=== PATIENT | male | born 1995 | race Asian ===

== ENCOUNTER 2017-01-02 14:46 | Outpatient (CLI) | payer BC ==
--- NOTE | 2017-01-02 15:26 | RAD ---
TWO VIEW CHEST: History: Cough. FINDINGS: Lungs are clear of infiltrate. Heart and mediastinum are unremarkable. Vascular markings are normal. IMPRESSION: No acute abnormality. POS: [facility]
== END 2017-01-02 14:47 | disposition home or self-care (01) ==
LOC: SCSRAD 14:46
PROVIDERS: ATTEND Nurse Practitioner Family
DX: R05 Cough (principal)
CPT/HCPCS: 71020